=== PATIENT | male | born 1950 | race Caucasian/White ===

== ENCOUNTER → 2017-06-09 16:05 | Outpatient (CLI) | payer BC, SELFPAY ==
--- NOTE | 2017-06-09 12:14 | ESO_PTH ---
PATIENT: ARTEMIO LARA LOC: [facility] U#:[id number] AGE/SX: 74/M ROOM: RE06/09/[address]: Dr. Shun Marin MD : [id number] BED: DIS: SPEC #: [id number] RECD: 06/09/17 15:34 STATUS: KENNY DAVID #: [id number] WILFREDO: 06/09/17 12:[address]: Shun Marin DEPT: SURGICAL PATHOLOGY RECD BY: Artemio Hoff ENTERED: 06/12/17 12:09 SP TYPE: VIJAY JACKSON DR: NANCY Tissues: Esophagus, NOS Procedures: Surgery Specimen Level IV HEADER OPERATION: EGD with biopsies PRE-OP DIAGNOSIS: Dysphagia TISSUE SUBMITTED: Esophageal biopsies, rule out EE MICROSCOPIC DIAGNOSIS Esophageal biopsy: Fragments of squamous epithelium with changes consistent with eosinophilic esophagitis. See comment. HARLEY:edel 06/13/17 COMMENT The specimen shows increased number of eosinophils (> 25 per high power field), consistent with eosinophilic esophagitis. Please make reference to previous specimen ([id number]) esophagus, biopsy with diagnosis of fragments of squamous epithelium with changes consistent with eosinophilic esophagitis. MICROSCOPIC DESCRIPTION Slides are reviewed. GROSS DESCRIPTION Received in fixative is one container labeled with the patient's name and designated esophageal biopsy. The specimen consists of multiple irregular fragments of light burch soft tissue that in aggregate measure 1.4 x 0.3 x 0.1 cm. The specimen is totally submitted in one cassette. / SJ:edel 06/12/17 TC:5 CPT: 76501
== END ==
PROVIDERS: Visit Provider Internal Medicine Gastroenterology
DX: R13.10 Dysphagia, unspecified (principal)
CPT/HCPCS: 88305

== ENCOUNTER → 2017-06-12 06:29 | Outpatient (CLI) | payer BC, SELFPAY ==
[2017-06-12 07:58] LABS: AST(SGOT) 11 U/L (15-37); Alanine Aminotransfer ALT/SGPT 20 U/L (16-61); Albumin, Serum 3.1 g/dL (3.2-5.0); Alkaline Phosphatase 59 U/L (45-117); Bilirubin, Direct 0.23 mg/dL (0.00-0.30); Cholesterol 86 mg/dL (200); High Density Lipoprotein 43 mg/dL; Protein, Total 7.1 g/dL (6.4-8.2); Triglycerides 54 mg/dL; Very Low Density Lipoprotein 11 mg/dL (5-40)
== END ==
PROVIDERS: Family Provider Student in an Organized Health Care Education/Training Program; PCP Student in an Organized Health Care Education/Training Program; Visit Provider Nurse Practitioner Family
DX: E78.5 Hyperlipidemia, unspecified (principal); Z79.899 Other long term (current) drug therapy
CPT/HCPCS: 36415; 80061; 80076

== ENCOUNTER → 2017-12-18 06:01 | Outpatient (CLI) | payer BC, SELFPAY ==
[2017-12-18 09:05] LABS: AST(SGOT) 16 U/L (15-37); Alanine Aminotransfer ALT/SGPT 30 U/L (16-61); Albumin, Serum 3.6 g/dL (3.2-5.0); Alkaline Phosphatase 62 U/L (45-117); Bilirubin, Direct 0.21 mg/dL (0.00-0.30); Cholesterol 107 mg/dL (200); Globulin 3.2 g/dL (2.2-4.2); High Density Lipoprotein 54 mg/dL; Protein, Total 6.8 g/dL (6.4-8.2); Triglycerides 65 mg/dL; Very Low Density Lipoprotein 13 mg/dL (5-40)
== END ==
PROVIDERS: Family Provider Student in an Organized Health Care Education/Training Program; PCP Student in an Organized Health Care Education/Training Program; Referring Provider Nurse Practitioner Family; Visit Provider Nurse Practitioner Family
DX: E78.5 Hyperlipidemia, unspecified (principal)
CPT/HCPCS: 36415; 80061; 80076

== ENCOUNTER 2019-01-22 06:32 | Emergency (ER) | payer BC, SELFPAY ==
[2018-07-09 16:06] VITALS: BMI 28.5
[2019-01-22 06:33] VITALS: BP 134/80; PULSE 67; RESP 16; TEMP 36.4; O2SAT 96; BMI 29.4
--- NOTE | 2019-01-22 06:49 | ED.VIS.GEN ---
History of Present Illness Chief Complaint: Lower Extremity Injury Narrative: Patient is a 68-year-old male who presents with bruising on his right leg. He initially noticed some bruising and swelling on his medial right lower leg near the top of the sock about a week to week and a half ago. He has since noticed that the bruising seems to move down along his foot. He does not have any pain. He is on Eliquis due to history of stroke. No traumatic injury that he recalls. He denies any other bleeding such as rectal bleeding blood in the urine. No chest pain or shortness of breath. Review of systems otherwise negative. Past Medical History - Allergies and Home Meds Allergies/Adverse Reactions: Allergies No Known Allergies Allergy (Verified 01/22/19 06:36) Primary Care Physician: Dima Mario DO [Primary Care Provider] - Past Medical History: - - Stroke Surgical History: no surgical history Smoking Status: Never smoker - Family History Sibling Family History: Family History (Last Reviewed 07/09/18 @ 16:00 by Yoanna Snowden) Brother CVA (cerebral vascular accident) Brother Diabetes Brother Diabetes Family History: Reports: Diabetes, Stroke Paternal Family History: Family History (Last Reviewed 07/09/18 @ 16:00 by Yoanna Snowden) Brother CVA (cerebral vascular accident) Brother Diabetes Brother Diabetes Family History: Reports: Heart Disease Review of Systems All systems negative except as indicated General: Denies: Fever Cardiovascular: Denies: Chest pain Respiratory: Denies: Dyspnea Gastrointestinal: Denies: Abdominal pain Skin: Denies: Rash Neurological: Denies: Headache Hematologic: Reports: Easy bruising, Easy bleeding Allergy: Denies: Uticaria Physical Exam Vital Signs/Narrative: Vital Signs Temp Pulse Resp BP Pulse Ox 01/22/19 06:33 97.6 F L 67 16 134/80 H 96 Inital Vital Signs reviewed: Yes General: Well nourished Head: Normocephalic Eyes: EOMI ENT: Moist mucous membranes Neck: Supple Cardiovascular: Regular rate Respiratory: No distress Extremities: - - Ecchymosis along the medial right lower leg and medial right foot no palpable purpura no petechiae no tenderness no fluctuance or obvious fluid collection no obvious ankle effusion 2+ dorsalis pedis pulse with brisk capillary refill Neurological: Alert Psychological: Normal affect Diagnostic/Tx/Re-eval - Medical Decision Making Patient presents with ecchymosis of his right leg and foot. He describes initial swelling. Suspect he may have had a minor traumatic injury with hematoma and now has some settling of blood products. He has no pain and otherwise has benign exam. He was reassured. He was previously told it was okay to hold his anticoagulation for couple of days for blood donation therefore I did feel it would be safe to hold his anticoagulation for a couple of days in this setting. He was also advised to rest and elevate the leg. He understands to return for new or worsening symptoms and was advised on signs and symptoms to monitor for and was discharged home. ED Disposition - Plan for ED Patient: Disposition: Home or Assisted Living Diagnosis: Ecchymosis Instructions: Contusions (Bruises) Referrals: Dima Mario DO [Primary Care Provider] -
[2019-01-22 06:54] VITALS: RESP 16
== END 2019-01-22 07:07 | disposition home or self-care (01) ==
LOC: ED 07:05
PROVIDERS: Emergency Provider Emergency Medicine; Family Provider Student in an Organized Health Care Education/Training Program; PCP Student in an Organized Health Care Education/Training Program
DX: R58 Hemorrhage, not elsewhere classified (principal); Z79.01 Long term (current) use of anticoagulants; Z82.49 Family history of ischemic heart disease and other diseases of the circulatory system; Z86.73 Personal history of transient ischemic attack (TIA), and cerebral infarction without residual deficits
CPT/HCPCS: 99282

== ENCOUNTER → 2019-02-15 05:56 | Outpatient (CLI) | payer BC, SELFPAY ==
[2019-02-11 14:49] VITALS: BMI 29.8
[2019-02-15 07:50] LABS: AST(SGOT) 20 U/L (15-37); Alanine Aminotransfer ALT/SGPT 33 U/L (16-61); Albumin, Serum 3.6 g/dL (3.2-5.0); Alkaline Phosphatase 60 U/L (45-117); Bilirubin, Direct 0.29 mg/dL (0.00-0.30); Cholesterol 119 mg/dL (200); Globulin 3.2 g/dL (2.2-4.2); High Density Lipoprotein 50 mg/dL; Protein, Total 6.8 g/dL (6.4-8.2); Triglycerides 81 mg/dL; Very Low Density Lipoprotein 16 mg/dL (5-40)
== END ==
PROVIDERS: Family Provider Student in an Organized Health Care Education/Training Program; PCP Student in an Organized Health Care Education/Training Program; Referring Provider Internal Medicine Cardiovascular Disease; Visit Provider Internal Medicine Cardiovascular Disease
DX: E78.5 Hyperlipidemia, unspecified (principal)
CPT/HCPCS: 36415; 80061; 80076

== ENCOUNTER → 2019-09-10 13:45 | Outpatient (CLI) | payer MEDICARE, BC, SELFPAY ==
[2019-08-26 10:51] VITALS: BMI 29.2
--- NOTE | 2019-09-10 13:50 | ECHOD_ITS ---
Reason For Study: PHTN Procedure This was a 2D Doppler, Color Flow transthoracic echocardiogram. Exam performed in department. Left Ventricle Mildly dilated left ventricle. The estimated ejection fraction is 55-60 %. Septal motion consistent with IVCD. No regional wall motion abnormalities noted. Right Ventricle Normal size and thickness. A moderator band is seen in the right ventricle. Normal systolic function. Atria Normal left atrium. Normal right atrium. Normal atrial septum. Mitral Valve The mitral valve is structurally normal. No prolapse or stenosis seen. Trivial mitral valve insufficiency. Tricuspid Valve Normal tricuspid valve. Trivial tricuspid valve insufficiency. Right ventricular systolic pressure estimated to be 23 mmHg. Aortic Valve Trisinus/trileaflet aortic valve. Trivial aortic valve insufficiency. Pulmonic Valve Normal pulmonic valve. Trivial pulmonic valve insufficiency. Great Vessels Mildly dilated aortic root. Normal arch. Normal inferior vena cava. Inferior vena cava collapse with sniff. Pericardium/Pleural No pericardial effusion. MMode/2D Measurements & Calculations LVIDd: 5.0 cm IVSd: 1.1 cm Ao root diam: 4.5 cm LVIDs: 3.6 cm LVPWd: 1.0 cm RVDd: 3.2 cm FS: 28.4 % LAV(MOD-bp): 60.3 ml EDV(MOD-sp4): 134.3 ml SV(MOD-sp4): 75.8 ml LAV(MOD-bp) Indexed: 27.7 ml/m2 ESV(MOD-sp4): 58.5 ml LAV(MOD-sp2): 63.1 ml EF(MOD-sp4): 56.4 % LAV(MOD-sp4): 58.1 ml LA dimension(2D): 3.6 cm LA A4 area: 19.8 cm2 RA A4 area: 16.5 cm2 Time Measurements MV dec time: 0.26 sec Doppler Measurements & Calculations MV E max robin: 39.9 cm/sec Lat Peak E' Robin: 15.5 cm/sec Med Peak E' Robin: 5.1 cm/sec MV A max robin: 54.8 cm/sec E/E' lat: 2.6 E/E' med: 7.8 MV E/A: 0.73 Ao V2 max: 109.5 cm/sec AI max robin: 387.3 cm/sec LV V1 max: 91.1 cm/sec Ao max P.8 mmHg AI max P.0 mmHg LV V1 max P.3 mmHg AI dec slope: 235.6 cm/sec2 AI P1/2t: 481.5 msec PA V2 max: 93.2 cm/sec PI end-d robin: 67.6 cm/sec TR max robin: 208.5 cm/sec TR max P.4 mmHg Interpretation Summary Mildly dilated left ventricle. The estimated ejection fraction is 55-60 %. Trivial mitral valve insufficiency. Trivial tricuspid valve insufficiency. Right ventricular systolic pressure estimated to be 23 mmHg. Trivial aortic valve insufficiency. Mildly dilated aortic root. Compared to echo report dated 10/20/2015, LV function has remained about the same, aortic root is increased from 3.9 to 4.5 cm. RVSP has remained about the same. Ordering Physician: Juan R Phan Referring Physician: ALLIE STEVENSON Performed By: Latoya Gabriel RDCS, RVT
== END ==
PROVIDERS: PCP Student in an Organized Health Care Education/Training Program; Referring Provider Internal Medicine Cardiovascular Disease; Visit Provider Internal Medicine Cardiovascular Disease
DX: I27.20 Pulmonary hypertension, unspecified (principal); I10 Essential (primary) hypertension; I48.4 Atypical atrial flutter; E78.5 Hyperlipidemia, unspecified; I47.1 Supraventricular tachycardia; Z86.73 Personal history of transient ischemic attack (TIA), and cerebral infarction without residual deficits
CPT/HCPCS: 93306

== ENCOUNTER → 2019-09-23 13:21 | Outpatient (CLI) | payer MEDICARE, BC, SELFPAY ==
[2019-08-26 10:51] VITALS: BMI 29.2
--- NOTE | 2019-09-23 13:23 | STE_ITS ---
Reason For Study: Atrial Fibrillation Stress Results Protocol: Ryne Protocol Maximum Predicted HR: 153 bpm Target HR: 130 bpm % Maximum Predicted HR: 94 % DurationHeart Rate Stage (mm:ss) (bpm) BP Comment Baseline 70 124/78No Chest Pain Ryne Protocol Stage I 3:00 102 140/72No Chest Pain Ryne Protocol Stage II 3:00 111 138/72No Chest Pain Ryne Protocol Stage III 3:00 133 164/76No Chest Pain; Mild Dyspnea Ryne Protocol Stage IV 0:30 144 / No Chest Pain; Mild to Mod Dyspnea Recovery 92 132/80 Stress Duration: 9:30 mm:ss Maximum Stress HR: 144 bpm METS: 11 Baseline Echocardiogram Findings The estimated ejection fraction is 65 %. Stress Echo Wall motion Data Resting WM Intermediate WM Stress WM Resting Wall Motion Wall Motion Stress No regional wall motion No regional wall motion abnormalities noted. abnormalities noted. EKG Data The baseline ECG displays normal sinus rhythm. The patient exercised according to the regular Ryne protocol for a total duration of 9:30. The maximum heart rate attained was 153 beats per minute. This was 100% of maximum predicted heart rate. The patient exercised into stage 4 of the Ryne protocol. During stress, there were no ST or T wave changes noted to suggest ischemia. No clinical angina was noted. MMode/2D Measurements & Calculations Ao root diam: 4.4 cm Interpretation Summary The estimated ejection fraction is 65 %. Normal, adequate, treadmill echocardiogram. Negative for ischemia by EKG and echocardiographic criteria. No anginal symptoms noted. Rare PVC and ventricular couplets noted during exercise. Test terminated due to the attainment of target heart rate. Final LVEF is 75%. Patient tolerated procedure well. No complications. Ordering Physician: Juan R Phan Referring Physician: Dima Mario Performed By: Latoya Gabriel, RDCS, RVT
== END ==
PROVIDERS: PCP Student in an Organized Health Care Education/Training Program; Referring Provider Internal Medicine Cardiovascular Disease; Visit Provider Internal Medicine Cardiovascular Disease
DX: I48.91 Unspecified atrial fibrillation (principal); I47.1 Supraventricular tachycardia; I10 Essential (primary) hypertension; I48.4 Atypical atrial flutter; E78.5 Hyperlipidemia, unspecified; Z86.73 Personal history of transient ischemic attack (TIA), and cerebral infarction without residual deficits; R06.00 Dyspnea, unspecified
CPT/HCPCS: 93017; 93350

== ENCOUNTER → 2019-10-01 14:50 | Outpatient (CLI) | payer MEDICARE, BC, SELFPAY ==
[2019-08-26 10:51] VITALS: BMI 29.2
--- NOTE | 2019-10-01 14:51 | CT_ITS ---
We are attempting to reach an attending provider to discuss findings. An addendum with communication details will be sent when the communication is complete. STUDY: CTA CHEST REASON FOR EXAM: Male, 69 years old. AORTIC ROOT DIGITATION SEEN ON ECHO, WENT FROM 3.9 TO 4.5, HTN, STROKE 4-5 YRS AGO RADIATION DOSAGE (If Supplied By Facility): CTDIvol = ( 17.84 ) mGy, DLP = ( 611.58 ) mGycm TECHNIQUE: The examination was performed with the intravenous administration of IV 100mL Isovue-370. Post-processing of the angiographic images was performed, with multiplanar reformation and 3D reconstruction. Individualized dose optimization techniques were used for this CT. COMPARISON: None. FINDINGS: Normal enhancement of the main pulmonary artery and right and left pulmonary arteries. Normal enhancement of the bilateral peripheral pulmonary arteries. There is no demonstrated pulmonary embolism. The main pulmonary artery measures up to 3.3 cm in diameter. There is aneurysmal dilatation of the ascending thoracic aorta measuring up to 4.6 cm in diameter at the level of the aortic root and 4.1 cm in diameter just proximal to the arch. There is suspected nonocclusive thrombus of the right axillary and subclavian veins. There is no demonstrated aortic dissection. Normal heart and pericardium. There are calcified mediastinal and right hilar nodes. Normal visualized trachea and bronchi. The lungs are well expanded. There is a small calcified granuloma of the right upper lobe. Normal pleura. Normal chest wall structures. There are diffuse degenerative changes of the visualized thoracolumbar spine. There is a small hiatal hernia. There is a 2.9 cm low-attenuation focus in the midpole of the right kidney indeterminate for solid versus cystic structure. CT/CTA Chest W/WO Contrast IMPRESSION: Normal CTA chest examination, without a demonstrated pulmonary embolism or arterial dissection. There is mild dilatation of the main pulmonary artery measuring up to 3.3 cm in diameter. This may be associated with pulmonary hypertension. There is suspected nonocclusive thrombus of the right axillary and subclavian veins. Venous DOPPLER study is recommended for further evaluation at this time. There is aneurysmal dilatation of the descending thoracic aorta at the level of the root measuring up to 4.6 cm in diameter and up to 4.1 cm just proximal to the arch. Calcified mediastinal and right hilar nodes. Small hiatal hernia. 2.9 cm low-attenuation focus of the midpole of the right kidney indeterminate for solid versus cystic structure. Ultrasound correlation is recommended. Electronically Signed: Prasanna Maldonado MD at 16:20 EDT , Service support ,
[2019-10-01 15:15] LABS: CREATININE FINGERSTICK 0.9 mg/dL (0.70-1.30)
== END ==
PROVIDERS: PCP Student in an Organized Health Care Education/Training Program; Referring Provider Internal Medicine Cardiovascular Disease; Visit Provider Internal Medicine Cardiovascular Disease
DX: I77.810 Thoracic aortic ectasia (principal); Z86.73 Personal history of transient ischemic attack (TIA), and cerebral infarction without residual deficits
CPT/HCPCS: 71275; Q9967

== ENCOUNTER → 2019-10-02 15:14 | Outpatient (CLI) | payer MEDICARE, BC, SELFPAY ==
[2019-08-26 10:51] VITALS: BMI 29.2
--- NOTE | 2019-10-02 15:16 | VDUE_ITS ---
Reason For Study: Possible DVT by CTA Right Proximal Left Proximal Right jugular vein is spontaneous, widely Left subclavian vein is spontaneous, widely patent, phasic, with no intraluminal patent, phasic, with no intraluminal echogenicity noted. echogenicity noted. Right subclavian vein is spontaneous, widely patent, phasic, with no intraluminal echogenicity noted. Right Lower Arm Right radial vein is compressible. Right ulnar vein is compressible. Right Arm Right axillary vein is spontaneous, patent, phasic, competent, compressible and demonstrates augmentation. Right brachial vein is compressible. Right cephalic vein is compressible. Right basilic vein is compressible. Interpretation Summary No evidence for acute deep venous thrombosis[right] upper extremity with patent and compressible cephalic and basilic veins. Normal flow patterns left subclavian vein Ordering Physician: Juan R Phan Referring Physician: Dima Mario Performed By: Selena Espino RVT, RDCS and Student ?
== END ==
PROVIDERS: PCP Student in an Organized Health Care Education/Training Program; Referring Provider Internal Medicine Cardiovascular Disease; Visit Provider Internal Medicine Cardiovascular Disease
DX: I47.1 Supraventricular tachycardia (principal); I48.4 Atypical atrial flutter; I63.9 Cerebral infarction, unspecified; I82.A11 Acute embolism and thrombosis of right axillary vein; I82.B11 Acute embolism and thrombosis of right subclavian vein
CPT/HCPCS: 93971

== ENCOUNTER 2019-10-19 19:40 | Emergency (ER) | payer MEDICARE, BC, SELFPAY ==
[2019-08-26 10:51] VITALS: BMI 29.2
[2019-10-19] VITALS (8 sets, daily range): BP systolic 126–148; BP diastolic 80–93; PULSE 72–83; RESP 12–18; TEMP 36.6–36.8; O2SAT 91–96; BMI 29.9
--- NOTE | 2019-10-19 20:08 | ED.VISSUMM ---
- ER Visit Summary Date of Service: 10/19/19 Chief Complaint: Cough and fever History of Present Illness: The patient is a 69 M history of thoracic aneurysm, CVA and hypertension. Patient has had coworkers have been recently COVID positive. He developed a cough and fever today with mild shortness of breath. He denies chest pain. States nonproductive cough. He denies any nausea, vomiting or diarrhea. Physical Examination: Older male accompanied by his vital signs stable afebrile. Pulse ox 93% on room air no hypoxia. HEENT exam unremarkable. Moist wheeze members. Neck nontender. No lymphadenopathy. No JVD. Lungs clear to auscultation bilaterally. No rales, rhonchi or wheezing. Equal symmetrical. No distress. Heart regular rhythm rate about 80 no murmur. Abdomen soft nontender normal bowel sounds no peritoneal signs. Patient moving all 4 extremities. Calves nontender without edema or cords. Neurologically is awake alert with no focal motor deficits. Back nontender. Skin unremarkable. Test Results: Chest x-ray AP and lateral view shows no acute abnormality. No infiltrate. No obvious COVID. CBC white count of 4. Hemoglobin 14. No bands. Chemistries unremarkable normal creatinine and gap. Send out COVID test pending. Emergency Department Course and Treatment: Patient with cough and fever prior to arrival. COVID testing. Also chest x-ray and labs. Repeat exam patient is doing well at 21:14 PM. I am concerned that he may be COVID positive. He will need to self quarantine at home until the test results return. To walk the patient up and down the hallway off of oxygen and his pulse ox saturation remained at 93%. He did well and is comfortable being discharged home. Treatment Plan: Quarantine at home. Return if worse. Follow-up with his primary care physician. Disposition: Discharge Impression: Viral URI Suspected COVID-19 with send out test pending This note was generated with [employer] dictation software. It may contain incorrect words, spelling, and punctuation that were not noted in review of the chart prior to signing ED Disposition - Plan for ED Patient: Disposition: Home or Assisted Living Instructions: ED URI Viral Referrals: Dima Mario, [Primary Care Provider] - 3-5 Days if not improving Additional Instructions: Plenty of fluids and rest. Tylenol for fever. We did send a coronavirus or COVID-19 test that will go to [place] and the results are returned in the next 72 hours. You should quarantine yourself at home until the coronavirus test results return. Obviously if you are COVID positive you will need to quarantine for a minimum 10 days. Return to the emergency department if you are feeling a lot worse this specially if you have shortness of breath.
[2019-10-19 20:31] LABS: Absolute Lymphocyte Count 1.02 X10^3/uL (0.83-4.51); Absolute Neutrophil Count 2.2 X10^3/uL (2.0-7.7); Basophil# 0.03 X10^3/uL; Basophil% 0.7 % (0-1); Eosinophil# 0.25 X10^3/uL; Eosinophils% 5.5 % (0-5); Hematocrit 43.7 % (40-54); Hemoglobin 14.7 g/dL (13.0-16.5); Lymphocyte # 1.02 X10^3/ul (4.0); Lymphocyte % 22.4 % (19-41); Mean Corp Hgb Conc 33.6 g/dL (32-36); Mean Corpuscular Hgb 33.1 pg (27.0-32.0); Mean Corpuscular Volume 98.4 fL (80-94); Mean Platelet Vol. 9.4 fl (6.2-12.0); Monocyte# 1.08 X10^3/uL; Monocyte% 23.7 % (0-10); NRBC Flagged by Analyzer 0 % (0-5); Neutrophil # 2.17 X10^3/uL (2.7-7.7); Neutrophil % 47.5 % (47-70); Platelet Count 197 K/mm3 (150-450); RBC Distribution Width CV 13.2 % (11.6-14.6); RBC Distribution Width SD 47.8 fl (35.1-43.9); Red Blood Count 4.44 M/mm3 (4.6-6.2); White Blood Count 4.6 K/mm3 (4.4-11.0)
[2019-10-19 20:45] LABS: Anion Gap 6 (5-15); BUN 12 mg/dL (7-18); BUN/Creat Ratio 11.3 RATIO (10-20); Chloride 109 mmol/L (98-107); Creatinine, Serum 1.06 mg/dL (0.70-1.30); EST Glomerular Filtration Rate 74 mL/min (>60); Est Glom Filt Rate - Afr Amer 90 mL/min (>60); Estimated Creatinine Clearance 74.22 ml/min; Glucose 95 mg/dL (74-106); Potassium 3.9 mmol/L (3.5-5.1); Sodium Level 140 mmol/L (136-145)
--- NOTE | 2019-10-19 20:45 | RAD_ITS ---
STUDY: X-RAY CHEST REASON FOR EXAM: Male, 69 years old. sob, fatigue, fever at one point today of 101 TECHNIQUE: Single AP portable view of the chest. COMPARISON: October 19, 2015 FINDINGS: There are interstitial fibrotic changes of the lungs. No visualized consolidation or infiltrate. There is no demonstrated pleural abnormality. Normal size heart. Stable visualized mediastinal and osseous structures. RAD/Chest 1 View (Portable) IMPRESSION: No visualized acute process Electronically Signed: Ridge Herrera MD at 21:43 EDT , Service support ,
--- NOTE | 2019-10-19 21:15 | DCINST.ED_ITS ---
ED Disposition - Plan for ED Patient: Disposition: Home or Assisted Living Instructions: ED URI Viral Referrals: Dima Mario DO [Primary Care Provider] - 3-5 Days if not improving Additional Instructions: Plenty of fluids and rest. Tylenol for fever. We did send a coronavirus or COVID-19 test that will go to [place] and the results are returned in the next 72 hours. You should quarantine yourself at home until the coronavirus test results return. Obviously if you are COVID positive you will need to quarantine for a minimum 10 days. Return to the emergency department if you are feeling a lot worse this specially if you have shortness of breath.
== END 2019-10-19 21:33 | disposition home or self-care (01) ==
PROVIDERS: Emergency Provider Emergency Medicine; PCP Student in an Organized Health Care Education/Training Program
DX: J06.9 Acute upper respiratory infection, unspecified (principal); Z20.828 Contact with and (suspected) exposure to other viral communicable diseases; I10 Essential (primary) hypertension; Z86.73 Personal history of transient ischemic attack (TIA), and cerebral infarction without residual deficits
CPT/HCPCS: 71045; 80048; 85025; 87635; 99284; A4216; U0003

== ENCOUNTER → 2020-02-29 07:22 | Outpatient (CLI) | payer MEDICARE, BC, SELFPAY ==
[2020-02-26 14:03] VITALS: BMI 29.8
[2020-02-29 08:12] LABS: Absolute Lymphocyte Count 1.11 X10^3/uL (0.83-4.51); Absolute Neutrophil Count 2.5 X10^3/uL (2.0-7.7); Basophil# 0.05 X10^3/uL; Eosinophils% 15.8 % (0-5); Hematocrit 48.8 % (40-54); Hemoglobin 16.4 g/dL (13.0-16.5); Lymphocyte # 1.11 X10^3/ul (4.0); Mean Corp Hgb Conc 33.6 g/dL (32-36); Mean Corpuscular Volume 98.2 fL (80-94); Mean Platelet Vol. 9.4 fl (6.2-12.0); Monocyte# 0.59 X10^3/uL; Monocyte% 11.7 % (0-10); NRBC Flagged by Analyzer 0 % (0-5); Neutrophil # 2.49 X10^3/uL (2.7-7.7); Neutrophil % 49.3 % (47-70); Platelet Count 219 K/mm3 (150-450); RBC Distribution Width CV 12.6 % (11.6-14.6); RBC Distribution Width SD 45.3 fl (35.1-43.9); Red Blood Count 4.97 M/mm3 (4.6-6.2); White Blood Count 5.1 K/mm3 (4.4-11.0)
[2020-02-29 08:31] LABS: AST(SGOT) 13 U/L (15-37); Alanine Aminotransfer ALT/SGPT 28 U/L (16-61); Albumin, Serum 3.6 g/dL (3.2-5.0); Alkaline Phosphatase 68 U/L (45-117); Bilirubin, Direct 0.19 mg/dL (0.00-0.30); Cholesterol 122 mg/dL (200); Globulin 3.3 g/dL (2.2-4.2); High Density Lipoprotein 52 mg/dL; Protein, Total 6.9 g/dL (6.4-8.2); Triglycerides 76 mg/dL; Very Low Density Lipoprotein 15 mg/dL (5-40)
== END ==
PROVIDERS: PCP Student in an Organized Health Care Education/Training Program; Referring Provider Physician Assistant Medical; Visit Provider Physician Assistant Medical
DX: I47.1 Supraventricular tachycardia (principal); I77.810 Thoracic aortic ectasia; I10 Essential (primary) hypertension; E78.00 Pure hypercholesterolemia, unspecified
CPT/HCPCS: 36415; 80061; 80076; 85025

== ENCOUNTER 2020-10-11 18:00 | Emergency (ER) | payer MEDICARE, BC, SELFPAY ==
[2020-10-11 18:01] VITALS: BP 140/86; PULSE 76; RESP 16; TEMP 36.9; O2SAT 95; BMI 29.2
--- NOTE | 2020-10-11 18:39 | EKG12_ITS ---
Test Reason : CHEST Blood Pressure : / mmHG Vent. Rate : 069 BPM Atrial Rate : 069 BPM P-R Int : 238 ms QRS Dur : 110 ms QT Int : 418 ms P-R-T Axes : 074 -27 022 degrees QTc Int : 447 ms Sinus rhythm with sinus arrhythmia with 1st degree A-V block Low voltage QRS Poor R wave progression Borderline ECG Confirmed by ANGELES SULLIVAN, ALFIE ([id number]), editor news WANDA NOGUERA ([id number]) on 10/13/2020 8:54:34 AM Referred By: TOD Confirmed By:ALFIE REYNOSO MD
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
[2020-10-11 19:16] LABS: Absolute Lymphocyte Count 1.58 X10^3/uL (0.83-4.51); Absolute Neutrophil Count 3.5 X10^3/uL (2.0-7.7); Basophil# 0.04 X10^3/uL; Basophil% 0.6 % (0-1); Eosinophil# 0.78 X10^3/uL; Eosinophils% 11.7 % (0-5); Hematocrit 46.9 % (40-54); Hemoglobin 15.8 g/dL (13.0-16.5); Lymphocyte # 1.58 X10^3/ul (0.83-4.51); Lymphocyte % 23.7 % (19-41); Mean Corp Hgb Conc 33.7 g/dL (32-36); Mean Corpuscular Hgb 32.6 pg (27.0-32.0); Mean Corpuscular Volume 96.7 fL (80-94); Mean Platelet Vol. 9.3 fl (6.2-12.0); Monocyte# 0.75 X10^3/uL; Monocyte% 11.2 % (0-10); NRBC Flagged by Analyzer 0 % (0-5); Neutrophil # 3.52 X10^3/uL (2.7-7.7); Neutrophil % 52.7 % (47-70); Platelet Count 187 K/mm3 (150-450); RBC Distribution Width CV 12.8 % (11.6-14.6); RBC Distribution Width SD 45.7 fl (35.1-43.9); Red Blood Count 4.85 M/mm3 (4.6-6.2); White Blood Count 6.7 K/mm3 (4.4-11.0)
--- NOTE | 2020-10-11 19:20 | RAD_ITS ---
STUDY: X-RAY - UNILATERAL RIBS ( RIGHT ) WITH CHEST REASON FOR EXAM: Male, 70 years old. pain TECHNIQUE - RIBS: 4 view(s) of the ribs. TECHNIQUE - CHEST: Single AP portable view of the chest. COMPARISON: 10/19/2019. FINDINGS - RIBS: Normal visualized ribs without a demonstrated fracture. FINDINGS - CHEST: There is hyperinflation of the lungs consistent with chronic obstructive lung disease (COPD). There is no demonstrated pleural abnormality. Normal size heart. Normal mediastinum and ezequiel. There is prominence of the pulmonary hilar arteries without peripheral pulmonary vascular congestion, suggesting pulmonary hypertension. There is atherosclerotic tortuosity of the aortic arch and descending thoracic aorta. Normal visualized thoracic spine. Normal visualized ribs, clavicles, and shoulders. There is no demonstrated abnormality of the visualized soft tissue structures of the upper abdomen. RAD/Ribs Uni Min 3V w/PA Chest IMPRESSION: RIBS: Normal x-ray examination of the ribs. CHEST: There are findings consistent with COPD. There is no evidence of acute chest disease. Electronically Signed: David Galicia MD at 19:48 EDT , Service support ,
[2020-10-11 19:35] LABS: Anion Gap 6 (5-15); BUN 9 mg/dL (7-18); BUN/Creat Ratio 11.2 RATIO (10-20); Calcium,Total 8.4 mg/dL (8.5-10.1); Chloride 110 mmol/L (98-107); EST Glomerular Filtration Rate 102 mL/min (>60); Est Glom Filt Rate - Afr Amer 123 mL/min (>60); Glucose 118 mg/dL (74-106); Potassium 3.8 mmol/L (3.5-5.1); Sodium Level 143 mmol/L (136-145); Troponin-I HS 8 pg/mL (3.0-78.0)
[2020-10-11 20:12] VITALS: BP 135/89; PULSE 64; RESP 17; O2SAT 94
[2020-10-11] MEDS: Lidocaine 5% Patch 1 PATCH TOPICAL (20:39)
== END 2020-10-11 21:49 | disposition home or self-care (01) ==
PROVIDERS: Emergency Provider Student in an Organized Health Care Education/Training Program; PCP Student in an Organized Health Care Education/Training Program
DX: S29.011A Strain of muscle and tendon of front wall of thorax, initial encounter (principal); X50.0XXA Overexertion from strenuous movement or load, initial encounter; Y93.9 Activity, unspecified; Y92.89 Other specified places as the place of occurrence of the external cause; Y99.9 Unspecified external cause status; Z86.79 Personal history of other diseases of the circulatory system; E78.5 Hyperlipidemia, unspecified; G47.33 Obstructive sleep apnea (adult) (pediatric); I10 Essential (primary) hypertension; Z79.01 Long term (current) use of anticoagulants; Z79.82 Long term (current) use of aspirin; Z86.73 Personal history of transient ischemic attack (TIA), and cerebral infarction without residual deficits
CPT/HCPCS: 71101; 80048; 84484; 85025; 93005; 99284; A4216

== ENCOUNTER → 2021-09-30 | Outpatient (CLI) | payer MEDICARE, BC, SELFPAY ==
[2021-09-30 15:12] LABS: Absolute Lymphocyte Count 1.88 X10^3/uL (0.83-4.51); Absolute Neutrophil Count 5.6 X10^3/uL (2.0-7.7); Basophil# 0.03 X10^3/uL; Basophil% 0.3 % (0-1); Eosinophil# 0.41 X10^3/uL; Eosinophils% 4.6 % (0-5); Hematocrit 46.6 % (40-54); Hemoglobin 15.9 g/dL (13.0-16.5); Lymphocyte # 1.88 X10^3/ul (0.83-4.51); Lymphocyte % 21.3 % (19-41); Mean Corp Hgb Conc 34.1 g/dL (32-36); Mean Corpuscular Hgb 32.4 pg (27.0-32.0); Mean Corpuscular Volume 95.1 fL (80-94); Mean Platelet Vol. 9.3 fl (6.2-12.0); Monocyte# 0.92 X10^3/uL; Monocyte% 10.4 % (0-10); NRBC Flagged by Analyzer 0 % (0-5); Neutrophil # 5.56 X10^3/uL (2.7-7.7); Neutrophil % 62.9 % (47-70); Platelet Count 229 K/mm3 (150-450); RBC Distribution Width CV 12.7 % (11.6-14.6); RBC Distribution Width SD 44.5 fl (35.1-43.9); White Blood Count 8.8 K/mm3 (4.4-11.0)
[2021-09-30 15:32] LABS: BNP,B-Type NATRIURETIC PEPTIDE 33.1 pg/mL (0-100)
[2021-09-30 15:47] LABS: Anion Gap 3 (5-15); BUN 11 mg/dL (7-18); BUN/Creat Ratio 12.4 RATIO (10-20); Calcium,Total 8.7 mg/dL (8.5-10.1); Chloride 106 mmol/L (98-107); Creatinine, Serum 0.89 mg/dL (0.70-1.30); EST Glomerular Filtration Rate 91 mL/min (>60); Est Glom Filt Rate - Afr Amer 110 mL/min (>60); Glucose 97 mg/dL (74-106); Potassium 3.9 mmol/L (3.5-5.1); Sodium Level 140 mmol/L (136-145); Thyroid Stim Hormone (TSH) 1.23 uIU/mL (0.358-3.74)
== END | disposition home or self-care (01) ==
LOC: LAB 14:49
PROVIDERS: PCP Student in an Organized Health Care Education/Training Program; Referring Provider Nurse Practitioner Gerontology; Visit Provider Nurse Practitioner Gerontology
DX: R53.83 Other fatigue (principal); R06.09 Other forms of dyspnea
CPT/HCPCS: 36415; 80048; 83880; 84439; 84443; 85025

== ENCOUNTER 2021-12-15 09:24 | Emergency (ER) | payer MEDICARE, BC, SELFPAY ==
[2021-12-15 09:25] VITALS: BP 127/99; PULSE 98; RESP 18; TEMP 36.6; O2SAT 96; BMI 27.7
--- NOTE | 2021-12-15 10:08 | ED.VIS.LOWEX ---
HPI History of Present Illness Chief Complaint: Lower Extremity Injury Detail of Chief Complaint: Right knee pain Informant: patient Narrative Narrative: Patient presents with right knee pain. Patient states that initially he thinks he may have injured it in early November when he was riding on his 0 turn mower with his 9-year-old on his lap and he had some bumps. Patient states that he had some soreness to the knee but felt like things were getting better. Yesterday while at work he caught his work boots on the floor in his right knee twisted and he developed sudden onset of pain. Patient now having a hard time bearing weight secondary to pain. Patient is on Eliquis due to history of prior stroke and history of A. fib. [facility] Medical History Acute deep vein thrombosis (DVT) of axillary vein of right upper extremity Atypical atrial flutter Cardioembolic stroke (10/2015) COVID-19 virus detected (10/2019) Esophagitis Essential hypertension GERD (gastroesophageal reflux disease) History of CVA (cerebrovascular accident) (10/2015) HLD (hyperlipidemia) Localized edema ALCIRA (obstructive sleep apnea) Right subclavian vein thrombosis SVT (supraventricular tachycardia) Thoracic aortic aneurysm (TAA) Ureteral stone Home Medications apixaban 5 mg tablet 5 mg PO BID #180 tabs 12/23/20 [Rx Last Taken Unknown] atorvastatin 40 mg tablet 40 mg PO QHS #90 tabs 12/23/20 [Rx Last Taken Unknown] diltiazem HCl 360 mg capsule,extended release 24 hr 360 mg PO QDAY #90 caps 12/23/20 [Rx Last Taken Unknown] pantoprazole 40 mg tablet,delayed release 40 mg PO DAILY 12/23/20 [History Last Taken Unknown] hydrocodone-acetaminophen 5-325mg 5mg-325mg 1 tab PO Q4H PRN PRN Pain 2 days #10 TABLETS 12/15/21 [Rx Last Taken Unknown] Allergy/AdvReac Type Severity Reaction Status Date / Time No Known Allergies Allergy Verified 12/15/21 09:28 Family History Brother CVA (cerebral vascular accident) Brother Diabetes Brother Diabetes Surgical History History of appendectomy hx ureteral excision hx ureteral reimplantation Social History Smoking Status: Never smoker alcohol intake: current alcohol intake frequency: a few times a week Alcohol type: beer substance use type: does not use caffeine: Yes Type: coffee Number of servings: 1 ROS ROS ED Review of Systems ROS Unobtainable: other Constitutional Constitutional ED: Reports lethargy; Denies chills, fever(s), sweats or weight loss Eyes Eyes: Denies blurry vision, change in vision or diplopia ENT ENT ED: Denies rhinorrhea or sore throat Cardiovascular Cardiovascular: Denies chest pain, orthopnea or racing heartbeat Respiratory/Chest Respiratory/Chest: Denies cough, dyspnea, dyspnea on exertion, orthopnea or sputum Gastrointestinal Gastrointestinal: Denies abdominal pain, diarrhea, nausea or vomiting Genitourinary Genitourinary ED: Denies dysuria, hematuria or urinary frequency Musculoskeletal Musculoskeletal: Reports other Details: Right knee pain ; Denies arthralgias, back pain, myalgias or neck pain Integumentary Denies abscess, Abrasions or rash Neurologic Neurologic: Denies headache(s) or weakness Psychiatric Psychiatric: Denies anxiety, depression or suicidal thoughts Endocrine Endocrinology: Denies polydipsia, polyphagia or polyuria Hematologic/Lymphatic Hematologic/Lymphatic: Denies easy bleeding, easy bruising or lymphadenopathy Allergic/Immunologic Allergic/Immunologic ED: Denies mouth swelling, tongue swelling or urticaria EXAM Physical Exam Const Vital Signs: 12/15/21 09:25 Temperature 97.9 F Temperature Source Temporal Pulse Rate 98 Respiratory Rate 18 Blood Pressure 127/99 H Blood Pressure Mean 108 Pulse Ox 96 Oxygen Delivery Method Room Air Positive well nourished and well developed General Appearance ED: well developed and NAD HEENT Reports TM's clear and moist mucous membranes normocephalic and atraumatic; Negative for trauma or tenderness Tympanic Membrane ED: Yes TM's clear Eyes PERRL and EOMs intact bilaterally General Eye ED: Negative for pale conjunctiva or scleral icterus Neck no lymphadenopathy, supple and no JVD General: Negative for tenderness Chest Wall inspection of chest normal and palpation of chest normal Chest: Negative for tenderness Resp normal respiratory effort and clear to auscultation bilaterally Effort and Inspection: Negative for respiratory distress or pain with movement Auscultation: Negative for rhonchi, wheezes or diminished lung sounds Cardio regular rate, regular rhythm, S1 normal heart sound, S2 normal heart sound and no murmurs Peripheral Pulses: pulses 2+ throughout GI normal to inspection, nondistended, normoactive bowel sounds, soft to palpation, non-tender, non-distended and no masses Back/Spine no CVA tenderness and no thoracic nor lumbar tenderness Extremity Extremity Narrative: Right knee-patient does have some mild suprapatellar effusion. Patient has pain with flexion extension of the knee. There is no ecchymosis or bruising noted. Ligamentous exam somewhat limited due to pain but appears ligamentously stable with normal anterior and posterior drawer test and no laxity noted with varus and valgus stressing of the joint. He is neurovascular intact distally. General Extremety ED: Negative for edema General Extremity: Negative for edema Neuro oriented x3, CN's II-XII intact bilaterally, no sensory deficits noted and gait normal Sensorium / Orientation: awake, alert, oriented to person, oriented to place and oriented to time Motor Exam: strength 5/5 throughout and strength abnormal Psych mental status grossly normal Skin no rashes or lesions noted and no wounds MDM MDM MDM Narrative Medical decision making narrative: Suspect patient has a sprain of his right knee although I cannot rule out internal derangement such as injury to the meniscus or ligaments. Patient will be given a knee immobilizer and crutches. He will be given a prescription for a few [place] for pain. He is given referral to orthopedics for follow-up. Radiography Diagnostic Testing: Clinical Impression(s) from Imaging Studies Knee X-Ray 12/15/21 10:10 IMPRESSION: Small joint effusion. Electronically Signed: Marino Oconnor MD at 10:35 EST , 4 view x-rays of right knee obtained interpreted by myself as no acute fractures. Radiology felt there was a small joint effusion. Discharge Plan Triage Chief Complaint: Lower Extremity Injury ED Provider: Fariba Gibson Dx/Rx/DC Orders Clinical Impression: Sprain of knee Instructions: ED Knee Sprain Prescriptions: New hydrocodone-acetaminophen [hydrocodone-acetaminophen] 1 TABLET tablet 1 tab PO Q4H PRN PRN (Reason: Pain) 2 Days Qty: 10 0RF No Action pantoprazole 40 mg tablet,delayed release (DR/EC) 40 mg PO DAILY apixaban 5 mg tablet 5 mg PO BID Qty: 180 3RF Label Comments: BLOOD THINNER atorvastatin 40 mg tablet 40 mg PO QHS Qty: 90 3RF Label Comments: CHOLESTEROL diltiazem HCl 360 mg capsule,extended release 24hr 360 mg PO QDAY Qty: 90 3RF Primary Care Provider: Dima Mario Referrals: Dima Mario DO [Primary Care Provider] - Prince Laboy MD [Med Staff - Active Staff] - 3-5 Days Disposition Disposition: Home, Self Care
--- NOTE | 2021-12-15 10:10 | RAD_ITS ---
STUDY: X-RAY - RIGHT KNEE REASON FOR EXAM: Male, 71 years old. Knee pain following recent injury. TECHNIQUE: 4 view(s) of the knee. COMPARISON: None. FINDINGS: Normal visualized distal femur. Normal visualized proximal tibia and fibula. Normal proximal tibiofibular articulation. Normal medial femorotibial compartment. Normal lateral femorotibial compartment. Normal patellofemoral articulation. Small joint effusion. RAD/Knee 4 or More Views IMPRESSION: Small joint effusion. Electronically Signed: Marino Oconnor MD at 10:35 EST ,
== END 2021-12-15 12:02 | disposition home or self-care (01) ==
PROVIDERS: Emergency Provider Emergency Medicine; PCP Student in an Organized Health Care Education/Training Program; Visit Provider Emergency Medicine
DX: S83.90XA Sprain of unspecified site of unspecified knee, initial encounter (principal); I10 Essential (primary) hypertension; E78.5 Hyperlipidemia, unspecified; Z86.16 Personal history of COVID-19; K21.9 Gastro-esophageal reflux disease without esophagitis; Z86.73 Personal history of transient ischemic attack (TIA), and cerebral infarction without residual deficits; G47.33 Obstructive sleep apnea (adult) (pediatric); Z86.718 Personal history of other venous thrombosis and embolism
CPT/HCPCS: 73564; 99284

== ENCOUNTER → 2021-12-23 | Outpatient (CLI) | payer MEDICARE, BC, SELFPAY ==
--- NOTE | 2021-12-23 14:32 | CT_ITS ---
STUDY: CTA CHEST REASON FOR EXAM: Male, 71 years old. TAA. Follow-up examination. RADIATION DOSAGE (If Supplied By Facility): CTDIvol = ( 15.42 ) mGy, DLP = ( 620.35 ) mGycm TECHNIQUE: The examination was performed with the intravenous administration of IV 100mL Isovue-370. Post-processing of the angiographic images was performed, with multiplanar reformation and 3D reconstruction. Individualized dose optimization techniques were used for this CT. COMPARISON: Comparison is made with prior study dated 10/01/2019. FINDINGS: Normal enhancement of the main pulmonary artery and right and left pulmonary arteries. Normal enhancement of the bilateral peripheral pulmonary arteries. There is no demonstrated pulmonary embolism. There is aneurysmal dilatation of the ascending aorta. The transverse diameter of the ascending aorta measures 45.1 mm''s. There is no demonstrated aortic dissection. There are calcifications of the coronary arteries. Calcified precarinal and right hilar lymph nodes. Normal visualized trachea and bronchi. The lungs are well expanded. Normal pulmonary parenchyma. Normal pleura. Normal chest wall structures. There are degenerative changes of thoracic spine. Moderate sized hiatal hernia. CT/CTA Chest W/WO Contrast IMPRESSION: Stable examination. Electronically Signed: Marino Oconnor MD at 15:32 EST ,
[2021-12-23 15:10] LABS: CREATININE FINGERSTICK < 0.9 mg/dL (0.70-1.30); EGFR FINGERSTICK > 60.0000 mL/min (>60)
== END | disposition home or self-care (01) ==
LOC: CT 14:31
PROVIDERS: PCP Student in an Organized Health Care Education/Training Program; Referring Provider Internal Medicine Cardiovascular Disease; Visit Provider Internal Medicine Cardiovascular Disease
DX: I71.20 Thoracic aortic aneurysm, without rupture, unspecified (principal)
CPT/HCPCS: 71275; Q9967

== ENCOUNTER 2022-03-04 17:53 | Emergency (ER) | payer MEDICARE, BC, SELFPAY ==
[2022-03-04 17:55] VITALS: BP 120/80; PULSE 61; RESP 15; TEMP 36.1; O2SAT 98; BMI 30.2
[2022-03-04 17:57] VITALS: PULSE 54
--- NOTE | 2022-03-04 18:00 | ED.RN ---
denies n/v, feels less dizzy when eyes are closed.
[2022-03-04 18:26] VITALS: O2SAT 81
[2022-03-04 18:28] VITALS: O2SAT 98
--- NOTE | 2022-03-04 18:40 | EKG12_ITS ---
Test Reason : DIZZY Blood Pressure : / mmHG Vent. Rate : 049 BPM Atrial Rate : 049 BPM P-R Int : 240 ms QRS Dur : 104 ms QT Int : 494 ms P-R-T Axes : 077 -28 022 degrees QTc Int : 446 ms Sinus bradycardia with marked sinus arrhythmia with 1st degree A-V block Otherwise normal ECG Confirmed by ANIBAL SULLIVAN, WAYNE ([id number]), state editor WANDA NOGUERA ([id number]) on 03/07/2022 9:23:39 AM Referred By: SAADIA/RUBEN Confirmed By:WAYNE BARNETT MD
--- NOTE | 2022-03-04 18:40 | EDS_ITS ---
HPI History of Present Illness Chief Complaint: Syncope Informant: patient and spouse/S.O. Narrative Narrative: Brought in by EMS from [facility] for near syncopal episode. Patient drove his to [facility] states he was scraping of snow and the car is working hard with some effort he went into catch up with his spouse is feeling fine initially upon catching up. He felt slight dizziness. He states slight shortness of breath. There is no chest pains. No abdominal pain. No syncopal episodes. History of chronic A. fib on Eliquis and on diltiazem. He had a small stroke 4 years ago slight residual deficits with lip drooping on the right. There is no weakness. He is on a statin. He has been compliant with his medications. Denies recent vomiting or diarrhea. Denies cough. Denies urinary symptoms. Denies any bloody stools with being on Eliquis. He does deal with a thoracic aneurysm being followed states last evaluated getting smaller there is no chest or back pain. [facility] Medical History Acute deep vein thrombosis (DVT) of axillary vein of right upper extremity Atypical atrial flutter Cardioembolic stroke (10/2015) COVID-19 virus detected (10/2019) Effusion, right knee Esophagitis Essential hypertension GERD (gastroesophageal reflux disease) History of CVA (cerebrovascular accident) (10/2015) HLD (hyperlipidemia) Localized edema ALCIRA (obstructive sleep apnea) Osteoarthritis of right knee Right subclavian vein thrombosis SVT (supraventricular tachycardia) Thoracic aortic aneurysm (TAA) Ureteral stone Home Medications pantoprazole 40 mg tablet,delayed release 40 mg PO DAILY 12/23/20 [History Last Taken Unknown] atorvastatin 40 mg tablet 40 mg PO QHS #90 tabs 01/25/22 [Rx Last Taken Unknown] apixaban 5 mg tablet 5 mg PO BID #180 tabs 02/18/22 [Rx Last Taken Unknown] diltiazem HCl 360 mg capsule,extended release 24 hr 360 mg PO QDAY #90 caps 02/18/22 [Rx Last Taken Unknown] metoclopramide HCl 5 mg tablet (Reglan) 5 mg PO TID PRN PRN dizziness or vertigo #10 tabs 03/04/22 [Rx Last Taken Unknown] Allergy/AdvReac Type Severity Reaction Status Date / Time No Known Allergies Allergy Verified 03/04/22 17:54 Family History Brother CVA (cerebral vascular accident) Brother Diabetes Brother Diabetes Surgical History History of appendectomy hx ureteral excision hx ureteral reimplantation Social History Smoking Status: Never smoker alcohol intake: current alcohol intake frequency: a few times a week Alcohol type: beer substance use type: does not use caffeine: Yes Type: coffee Number of servings: 1 ROS ROS ED Constitutional Constitutional ED: Denies chills, fever(s) or sweats Eyes Eyes: Denies change in vision ENT ENT ED: Denies dysphagia or sore throat Cardiovascular Cardiovascular: Denies chest pain, leg edema, palpitations or racing heartbeat Respiratory/Chest Respiratory/Chest: Denies cough, dyspnea or dyspnea on exertion Gastrointestinal Gastrointestinal: Denies abdominal pain, diarrhea, nausea or vomiting Genitourinary Genitourinary ED: Denies dysuria, hematuria or urinary frequency Musculoskeletal Musculoskeletal: Denies back pain, extremity pain or neck pain Integumentary Denies rash or wounds Neurologic Neurologic: Denies headache(s), paresthesias or weakness EXAM Physical Exam Const Vital Signs: 03/04/22 17:55 03/04/22 17:57 03/04/22 17:59 Temperature 96.9 F L Temperature Source Temporal Pulse Rate 61 54 L Respiratory Rate 15 Respiratory Effort Normal Non-Labored Blood Pressure 120/80 Blood Pressure Mean 93 Pulse Ox 98 Oxygen Delivery Method Room Air Oxygen Flow Rate (L/min) 03/04/22 18:26 03/04/22 18:28 03/04/22 20:00 Temperature Temperature Source Pulse Rate 68 Respiratory Rate 14 Respiratory Effort Blood Pressure 132/76 H Blood Pressure Mean 94 Pulse Ox 81 98 92 Oxygen Delivery Method Room Air Nasal Cannula Nasal Cannula Oxygen Flow Rate (L/min) 2 03/04/22 21:06 Temperature Temperature Source Pulse Rate 68 Respiratory Rate 16 Respiratory Effort Blood Pressure 133/89 H Blood Pressure Mean Pulse Ox 93 Oxygen Delivery Method Oxygen Flow Rate (L/min) Positive well nourished and well developed Constitutional Narrative: 2 L nasal cannula General Appearance ED: well developed and NAD HEENT Reports moist mucous membranes normocephalic and atraumatic Eyes PERRL, EOMs intact bilaterally and conjunctivae normal General Eye ED: Yes normal appearance of both eyes Neck no lymphadenopathy and supple General: Negative for tenderness Chest Wall Chest: Negative for tenderness Resp normal respiratory effort and normal air movement Effort and Inspection: symmetric chest movement; Negative for respiratory distress Cardio no murmurs Rate: bradycardia Rhythm: abnormal rhythm Peripheral Pulses: pulses 2+ throughout GI normal to inspection, nondistended, normoactive bowel sounds and non-tender Palpation: Negative for guarding or rebound tenderness present Back/Spine no CVA tenderness and no thoracic nor lumbar tenderness Extremity normal to inspection General Extremety ED: Negative for edema or tenderness General Extremity: Negative for edema Neuro oriented x3, CN's II-XII intact bilaterally and no sensory deficits noted Sensorium / Orientation: awake and alert Skin no rashes or lesions noted and no wounds MDM MDM MDM Narrative Medical decision making narrative: Patient vital stable. Presenting questionable near syncope however had some dizziness sensations. EKG was sinus rhythm with bradycardia heart rate was 49 EKG multiple rechecks was in the 50s and 60s he is on diltiazem. Blood pressure stable. EKG with no signs of heart block. Labs stable hemoglobin and creatinine normal. Differentials near syncope, no anemia or hypotension. Reevaluation still dizziness with turning he had horizontal nystagmus to the right. No focal neurological deficits. He was treated with IV Reglan. Improving symptoms. Likely vertiginous symptoms currently improved. He is able to ambulate with no return of symptoms. Or prescription of Reglan written help with symptom control. Was noted initially had a pulse ox of 81% however likely outlier he had no dyspnea or cough. He is on Eliquis therefore lower concerns for PE. He has no cough or concerns for pneumonia. He was ambulated maintained at 94% with no dyspnea. He is discharged with outpatient follow-up. Return precautions discussed. All questions were answered. Lab Data Attestation: I reviewed the patient's lab results. Labs: Laboratory Results - last 24 hr 03/04/22 03/04/22 18:00 18:00 WBC 7.9 RBC 5.07 Hgb 16.3 Hct 47.6 MCV 93.9 MCH 32.1 H MCHC 34.2 RDW Std Deviation 44.2 H RDW Coeff of Alina 12.9 Plt Count 245 MPV 9.2 Immature Gran % (Auto) 0.400 Neut % (Auto) 64.3 Lymph % (Auto) 21.0 Emmet % (Auto) 10.4 H Eos % (Auto) 3.4 Baso % (Auto) 0.5 Absolute Neuts (auto) 5.1 Absolute Lymphs (auto) 1.65 Nucleated RBC % 0 Sodium 141 Potassium 3.5 Chloride 106 Carbon Dioxide 25.0 Anion Gap 10 BUN 13 Creatinine 0.80 Estim Creat Clear Calc 95.65 Est GFR (MDRD) Af Amer 124 Est GFR (MDRD) Non-Af 102 BUN/Creatinine Ratio 16.3 Glucose 133 H Calcium 8.8 EKG Initial EKG: Attestation: I personally reviewed and interpreted this EKG as follows: Comments: Sinus arrhythmia with bradycardia heart rate of 49, no signs of heart block. QTc 446. Discharge Plan Triage Chief Complaint: Syncope ED Provider: Burt Melissa Dx/Rx/DC Orders Clinical Impression: Vertigo, History of hypertension, HLD (hyperlipidemia) Instructions: ED Vertigo, Unspecified Prescriptions: New metoclopramide HCl [Reglan] 5 mg tablet 5 mg PO TID PRN PRN (Reason: dizziness or vertigo) Qty: 10 0RF No Action pantoprazole 40 mg tablet,delayed release (DR/EC) 40 mg PO DAILY atorvastatin 40 mg tablet 40 mg PO QHS Qty: 90 3RF Label Comments: CHOLESTEROL diltiazem HCl 360 mg capsule,extended release 24hr 360 mg PO QDAY Qty: 90 3RF apixaban 5 mg tablet 5 mg PO BID Qty: 180 3RF Label Comments: BLOOD THINNER Primary Care Provider: Dima Mario Referrals: Dima Mario DO [Primary Care Provider] - 3-5 Days Activity Restrictions/Additional Instructions: EKG sinus arrhythmia no acute changes. Labs are stable. Your clinical symptoms concerning for vertigo. Use Reglan as needed. Disposition Disposition: Home, Self Care Discharge Date/Time: 03/04/22 21:13
[2022-03-04 18:48] LABS: Absolute Lymphocyte Count 1.65 X10^3/uL (0.83-4.51); Absolute Neutrophil Count 5.1 X10^3/uL (2.0-7.7); Basophil# 0.04 X10^3/uL; Basophil% 0.5 % (0-1); Eosinophil# 0.27 X10^3/uL; Eosinophils% 3.4 % (0-5); Hematocrit 47.6 % (40-54); Hemoglobin 16.3 g/dL (13.0-16.5); Lymphocyte # 1.65 X10^3/ul (0.83-4.51); Mean Corp Hgb Conc 34.2 g/dL (32-36); Mean Corpuscular Hgb 32.1 pg (27.0-32.0); Mean Corpuscular Volume 93.9 fL (80-94); Mean Platelet Vol. 9.2 fl (6.2-12.0); Monocyte# 0.82 X10^3/uL; Monocyte% 10.4 % (0-10); NRBC Flagged by Analyzer 0 % (0-5); Neutrophil # 5.06 X10^3/uL (2.7-7.7); Neutrophil % 64.3 % (47-70); Platelet Count 245 K/mm3 (150-450); RBC Distribution Width CV 12.9 % (11.6-14.6); RBC Distribution Width SD 44.2 fl (35.1-43.9); Red Blood Count 5.07 M/mm3 (4.6-6.2); White Blood Count 7.9 K/mm3 (4.4-11.0)
[2022-03-04 18:58] LABS: BUN 13 mg/dL (7-18); Estimated Creatinine Clearance 95.65 ml/min; Glucose 133 mg/dL (74-106)
[2022-03-04 18:59] LABS: Anion Gap 10 (5-15); BUN/Creat Ratio 16.3 RATIO (10-20); Calcium,Total 8.8 mg/dL (8.5-10.1); Chloride 106 mmol/L (98-107); EST Glomerular Filtration Rate 102 mL/min (>60); Est Glom Filt Rate - Afr Amer 124 mL/min (>60); Potassium 3.5 mmol/L (3.5-5.1); Sodium Level 141 mmol/L (136-145)
[2022-03-04] MEDS: Metoclopramide 10 MG/2 ML Vial 5 MG IV (19:29)
[2022-03-04 20:00] VITALS: BP 132/76; PULSE 68; RESP 14; O2SAT 92
[2022-03-04 21:06] VITALS: BP 133/89; PULSE 68; RESP 16; O2SAT 93
== END 2022-03-04 21:13 | disposition home or self-care (01) ==
PROVIDERS: Emergency Provider Emergency Medicine; PCP Student in an Organized Health Care Education/Training Program; Visit Provider Emergency Medicine
DX: R55 Syncope and collapse (principal); E78.5 Hyperlipidemia, unspecified; I10 Essential (primary) hypertension; R42 Dizziness and giddiness; K21.9 Gastro-esophageal reflux disease without esophagitis; Z86.73 Personal history of transient ischemic attack (TIA), and cerebral infarction without residual deficits; G47.33 Obstructive sleep apnea (adult) (pediatric); Z86.16 Personal history of COVID-19; Z86.718 Personal history of other venous thrombosis and embolism
CPT/HCPCS: 80048; 85025; 93005; 96361; 96374; 99285; A4216

== ENCOUNTER → 2022-10-14 | Outpatient (CLI) | payer MEDICARE, BC, SELFPAY ==
[2022-10-14 16:39] LABS: Absolute Neutrophil Count 5.1 X10^3/uL (2.0-7.7); Basophil# 0.05 X10^3/uL; Basophil% 0.6 % (0-1); Eosinophil# 0.28 X10^3/uL; Eosinophils% 3.5 % (0-5); Hematocrit 46.8 % (40-54); Hemoglobin 15.2 g/dL (13.0-16.5); Lymphocyte % 21.3 % (19-41); Mean Corp Hgb Conc 32.5 g/dL (32-36); Mean Corpuscular Hgb 31.9 pg (27.0-32.0); Mean Corpuscular Volume 98.1 fL (80-94); Mean Platelet Vol. 9.3 fl (6.2-12.0); Monocyte# 0.85 X10^3/uL; Monocyte% 10.7 % (0-10); NRBC Flagged by Analyzer 0 % (0-5); Neutrophil # 5.06 X10^3/uL (2.7-7.7); Neutrophil % 63.5 % (47-70); Platelet Count 234 K/mm3 (150-450); RBC Distribution Width CV 12.4 % (11.6-14.6); Red Blood Count 4.77 M/mm3 (4.6-6.2)
== END | disposition home or self-care (01) ==
LOC: LAB 15:51
PROVIDERS: PCP Student in an Organized Health Care Education/Training Program; Referring Provider Internal Medicine Gastroenterology; Visit Provider Internal Medicine Gastroenterology
DX: K62.5 Hemorrhage of anus and rectum (principal)
CPT/HCPCS: 36415; 85025

== ENCOUNTER 2023-05-05 08:37 | Emergency (ER) | payer MEDICARE, SELFPAY ==
[2023-05-05 08:38] VITALS: BP 139/92; PULSE 93; PULSE 98; RESP 15; TEMP 36.4; O2SAT 94; BMI 29.0
[2023-05-05 08:59] VITALS: BP 119/81; BP 122/110; BP 124/101; PULSE 61; PULSE 85; PULSE 99
[2023-05-05 09:17] LABS: Absolute Lymphocyte Count 1.09 X10^3/uL (0.83-4.51); Absolute Neutrophil Count 3.4 X10^3/uL (2.0-7.7); Basophil# 0.03 X10^3/uL; Basophil% 0.6 % (0-1); Eosinophil# 0.24 X10^3/uL; Eosinophils% 4.4 % (0-5); Hematocrit 46.2 % (40-54); Hemoglobin 15.7 g/dL (13.0-16.5); Lymphocyte # 1.09 X10^3/ul (0.83-4.51); Mean Corpuscular Hgb 32.8 pg (27.0-32.0); Mean Corpuscular Volume 96.5 fL (80-94); Mean Platelet Vol. 9.4 fl (6.2-12.0); Monocyte# 0.66 X10^3/uL; Monocyte% 12.1 % (0-10); NRBC Flagged by Analyzer 0 % (0-5); Neutrophil # 3.42 X10^3/uL (2.7-7.7); Neutrophil % 62.7 % (47-70); Platelet Count 221 K/mm3 (150-450); RBC Distribution Width CV 13.1 % (11.6-14.6); RBC Distribution Width SD 46.7 fl (35.1-43.9); Red Blood Count 4.79 M/mm3 (4.6-6.2); White Blood Count 5.5 K/mm3 (4.4-11.0)
[2023-05-05 09:23] LABS: Anion Gap 3 (5-15); BUN 9 mg/dL (7-18); BUN/Creat Ratio 10.4 RATIO (10-20); Calcium,Total 8.6 mg/dL (8.5-10.1); Chloride 109 mmol/L (98-107); Creatinine, Serum 0.86 mg/dL (0.70-1.30); EST Glomerular Filtration Rate 93 mL/min (>60); Est Glom Filt Rate - Afr Amer 112 mL/min (>60); Estimated Creatinine Clearance 96.47 ml/min; Glucose 84 mg/dL (74-106); Sodium Level 140 mmol/L (136-145)
[2023-05-05 10:13] VITALS: BP 136/80; PULSE 67; RESP 19; O2SAT 94
--- NOTE | 2023-05-05 11:48 | ED.VIS.GI ---
HPI HPI - GI History of Present Illness Chief Complaint: GI Bleed Informant: patient Narrative Narrative: Patient presenting with intermittent rectal bleeding for the past 2-3 days. He is on Eliquis because of a history of a stroke and A-fib flutter, so we discontinued it, which is what he has done when this is occurred in the past. Usually the bleeding stops and then he goes a couple days and restarts his Eliquis without any issues. However this morning he is still bleeding. It is intermittent. He states the bowl is red and he is having a hard time estimating how much blood is coming out when he has it. He denies any abdominal pain, nausea, vomiting, lightheadedness or syncope or any other symptoms. He states he has had colonoscopies by Dr. Marin in the past, he said he had his last screening colonoscopy and he was told he did not need any more, he states they were always normal. [facility] Medical History Acute deep vein thrombosis (DVT) of axillary vein of right upper extremity Atypical atrial flutter Cardioembolic stroke (10/2015) COVID-19 virus detected (10/2019) Effusion, right knee Esophagitis Essential hypertension GERD (gastroesophageal reflux disease) History of CVA (cerebrovascular accident) (10/2015) HLD (hyperlipidemia) Localized edema ALCIRA (obstructive sleep apnea) Osteoarthritis of right knee Right subclavian vein thrombosis SVT (supraventricular tachycardia) Thoracic aortic aneurysm (TAA) Ureteral stone Home Medications pantoprazole 40 mg tablet,delayed release 40 mg PO DAILY 12/23/20 [History Last Taken Unknown] dupilumab 300 mg/2 mL subcutaneous pen injector (Dupixent) 300 mg subcut QWEEK 06/22/22 [History Last Taken Unknown] atorvastatin 40 mg tablet 40 mg PO QHS #90 tabs 01/20/23 [Rx Last Taken Unknown] apixaban 5 mg tablet 5 mg PO BID #180 tabs 03/07/23 [Rx Last Taken Unknown] diltiazem HCl 360 mg capsule,extended release 24 hr See Rx Instructions .Route .COMPLEX #90 caps 05/04/23 [Rx Last Taken Unknown] Allergy/AdvReac Type Severity Reaction Status Date / Time No Known Allergies Allergy Verified 05/05/23 08:40 Family History Brother CVA (cerebral vascular accident) Brother Diabetes Brother Diabetes Surgical History History of appendectomy hx ureteral excision hx ureteral reimplantation Social History Smoking Status: Never smoker alcohol intake: current alcohol intake frequency: a few times a week Alcohol type: beer substance use type: does not use caffeine: Yes Type: coffee Number of servings: 1 ROS ROS ED Constitutional Constitutional ED: Denies chills or fever(s) Eyes Eyes: Denies change in vision or diplopia ENT ENT ED: Denies rhinorrhea or sore throat Cardiovascular Cardiovascular: Denies chest pain, lightheadedness, palpitations or syncope Respiratory/Chest Respiratory/Chest: Denies cough or dyspnea Gastrointestinal Gastrointestinal: Reports hematochezia; Denies abdominal pain, diarrhea, hematemesis, melena, nausea or vomiting Genitourinary Genitourinary ED: Denies dysuria or hematuria Musculoskeletal Musculoskeletal: Denies back pain or neck pain Integumentary Denies abscess or rash Neurologic Neurologic: Denies headache(s), paresthesias or weakness Psychiatric Psychiatric: Denies anxiety or suicidal thoughts EXAM Physical Exam Const Vital Signs: 05/05/23 08:38 05/05/23 08:38 05/05/23 08:59 Temperature 97.5 F L 97.5 F L Temperature Source Temporal Temporal Pulse Rate 93 98 Pulse Rate [Lying] 61 Pulse Rate [Sitting (for 1 minute prior to obtaining)] 85 Pulse Rate [Standing (for 1 minute prior to obtaining)] 99 Respiratory Rate 15 15 Blood Pressure 139/92 H 139/92 H Blood Pressure [Lying] 119/81 H Blood Pressure [Sitting (for 1 minute prior to obtaining)] 122/110 H Blood Pressure [Standing (for 1 minute prior to obtaining)] 124/101 H Blood Pressure Mean 107 107 Blood Pressure Mean [Lying] 93 Blood Pressure Mean [Sitting (for 1 minute prior to obtaining)] 114 Blood Pressure Mean [Standing (for 1 minute prior to obtaining)] 108 Pulse Ox 94 94 Oxygen Delivery Method Room Air Room Air 05/05/23 10:13 03/29/24 12:00 Temperature Temperature Source Pulse Rate 67 82 Pulse Rate [Lying] Pulse Rate [Sitting (for 1 minute prior to obtaining)] Pulse Rate [Standing (for 1 minute prior to obtaining)] Respiratory Rate 19 H 16 Blood Pressure 136/80 H 113/82 H Blood Pressure [Lying] Blood Pressure [Sitting (for 1 minute prior to obtaining)] Blood Pressure [Standing (for 1 minute prior to obtaining)] Blood Pressure Mean 98 92 Blood Pressure Mean [Lying] Blood Pressure Mean [Sitting (for 1 minute prior to obtaining)] Blood Pressure Mean [Standing (for 1 minute prior to obtaining)] Pulse Ox 94 94 Oxygen Delivery Method Room Air Room Air Positive well nourished and well developed General Appearance ED: well developed and NAD HEENT Reports moist mucous membranes normocephalic and atraumatic Eyes PERRL and EOMs intact bilaterally Neck full ROM and supple Resp normal respiratory effort and clear to auscultation bilaterally Cardio regular rate, regular rhythm and no murmurs GI non-tender and non-distended GI Narrative: On rectal, there is blood present but no active bleeding and no pooling on ORI. No tenderness or sign of an abscess or external hemorrhoid. Auscultation: normoactive bowel sounds Palpation: soft Back/Spine no CVA tenderness General Back: other FROM Extremity normal to inspection General Extremety ED: Negative for edema, pulses abnormal or tenderness General Extremity: Negative for edema or pulses abnormal Neuro oriented x3, CN's II-XII intact bilaterally and no sensory deficits noted Sensorium / Orientation: awake and alert Motor Exam: strength 5/5 throughout Skin no rashes or lesions noted and no wounds MDM MDM MDM Narrative Medical decision making narrative: Orthostatics were borderline with regards to his pulse going up a little over 30 but he was asymptomatic, and his blood counts look great at 15.7 hemoglobin. Otherwise his blood pressure has remained stable. He has had no other episodes of bleeding while he has been here. Discussed with Dr. Marin, he agrees reasonable to have the patient discharged home and he we will attempt to follow-up with him closely as an outpatient just after the weekend, I discussed this with the patient and his significant other, they are comfortable with this plan I did offer admission and he declines, we both advised that he keep off of his Eliquis until he is seen in follow-up, and if he has any worsening, to return to the ER for reevaluation and possible admission immediately. Lab Data Attestation: I reviewed the patient's lab results. Labs: Laboratory Results - last 24 hr 05/05/23 09:05 WBC 5.5 RBC 4.79 Hgb 15.7 Hct 46.2 MCV 96.5 H MCH 32.8 H MCHC 34.0 RDW Std Deviation 46.7 H RDW Coeff of Alina 13.1 Plt Count 221 MPV 9.4 Immature Gran % (Auto) 0.200 Neut % (Auto) 62.7 Lymph % (Auto) 20.0 [place]linger % (Auto) 12.1 H Eos % (Auto) 4.4 Baso % (Auto) 0.6 Absolute Neuts (auto) 3.4 Absolute Lymphs (auto) 1.09 Nucleated RBC % 0 Sodium 140 Potassium 4.0 Chloride 109 H Carbon Dioxide 28.0 Anion Gap 3 L BUN 9 Creatinine 0.86 Estim Creat Clear Calc 96.47 Est GFR (MDRD) Af Amer 112 Est GFR (MDRD) Non-Af 93 BUN/Creatinine Ratio 10.4 Glucose 84 Calcium 8.6 Management Discussion w/another healthcare provider: Clinical Marketing Manager (MJ Marin) Discharge Plan Triage Chief Complaint: GI Bleed ED Provider: Nish Shepherd Dx/Rx/DC Orders Clinical Impression: Anticoagulated, Acute lower gastrointestinal bleeding Instructions: ED Lower GI Bleeding (Stable) Prescriptions: Continued pantoprazole 40 mg tablet,delayed release (DR/EC) 40 mg PO DAILY Dupixent Pen 300 mg/2 mL pen injector 300 mg subcut QWEEK atorvastatin 40 mg tablet 40 mg PO QHS Qty: 90 3RF Patient Comments: CHOLESTEROL diltiazem HCl 360 mg capsule,extended release 24hr See Rx Instructions .ROUTE .COMPLEX Qty: 90 3RF Dose Instruction: Take 1 capsule by mouth once daily Rx Instructions: Take 1 capsule by mouth once daily Held apixaban 5 mg tablet 5 mg PO BID Qty: 180 3RF Hold Instructions: until seen by Dr. Marin Patient Comments: BLOOD THINNER Primary Care Provider: Dima Mario Referrals: Dima Mario DO [Primary Care Provider] - Shun Marin MD [Non-Staff] - As soon as possible Disposition Disposition: Home, Self Care
[2023-05-05 12:00] VITALS: BP 113/82; PULSE 82; RESP 16; O2SAT 94
[2023-05-05 12:47] VITALS: BP 117/73; PULSE 80; RESP 16; TEMP 36.6; O2SAT 97
== END 2023-05-05 12:48 | disposition home or self-care (01) ==
PROVIDERS: Emergency Provider Emergency Medicine; PCP Student in an Organized Health Care Education/Training Program; Visit Provider Emergency Medicine
DX: K92.2 Gastrointestinal hemorrhage, unspecified (principal); K21.00 Gastro-esophageal reflux disease with esophagitis, without bleeding; Z79.01 Long term (current) use of anticoagulants; Z86.73 Personal history of transient ischemic attack (TIA), and cerebral infarction without residual deficits; E78.5 Hyperlipidemia, unspecified; Z79.899 Other long term (current) drug therapy; Z90.49 Acquired absence of other specified parts of digestive tract
CPT/HCPCS: 80048; 85025; 99284; J7030; A4216

== ENCOUNTER 2023-05-15 15:18 | Emergency (ER) | payer MEDICARE, SELFPAY ==
[2023-05-15 15:19] VITALS: BP 113/71; PULSE 59; RESP 16; TEMP 35.6; O2SAT 97; BMI 28.2
--- NOTE | 2023-05-15 15:36 | ED.VIS.GI ---
HPI HPI - GI History of Present Illness Chief Complaint: Nausea/Vomiting/Diarrhea Informant: patient Abdominal Pain/Flank Pain Onset: Today Context: Gradual Onset Timing: Continuous Current Severity: Mild Maximum Severity: Mild Worsened by: Nothing Relieved by: Nothing Nausea/Vomiting/Emesis GI Symptom: Positive for Nausea and Vomiting Onset: Today Severity: Mild Diarrhea/Melena/Hematochezia GI Symptom: Positive for Diarrhea; Negative for Melena or Hematochezia Onset: Today Stool Quality: Positive for Loose Associated Symptoms Associated Symptoms: Negative for Dysuria, Frequency, Hematuria or Urgency Narrative Narrative: 72-year-old male history of GI bleed a week ago was not admitted. History of DVT and a flutter on Eliquis and prior stroke. Only prior abdominal surgery was an appendectomy 57 years ago. Since 4 AM this morning he started having nausea, vomiting and diarrhea. No hematemesis. No melena. No p.o. intake. Really no significant abdominal pain. Prior similar symptoms: Yes Recent Illness/Hospitalization: No PFSH PFSH Medical History Acute deep vein thrombosis (DVT) of axillary vein of right upper extremity Atypical atrial flutter Cardioembolic stroke (10/2015) COVID-19 virus detected (10/2019) Effusion, right knee Esophagitis Essential hypertension GERD (gastroesophageal reflux disease) History of CVA (cerebrovascular accident) (10/2015) HLD (hyperlipidemia) Localized edema ALCIRA (obstructive sleep apnea) Osteoarthritis of right knee Right subclavian vein thrombosis SVT (supraventricular tachycardia) Thoracic aortic aneurysm (TAA) Ureteral stone Home Medications pantoprazole 40 mg tablet,delayed release 40 mg PO DAILY 12/23/20 [History Last Taken Unknown] dupilumab 300 mg/2 mL subcutaneous pen injector (Dupixent) 300 mg subcut QWEEK 06/22/22 [History Last Taken Unknown] atorvastatin 40 mg tablet 40 mg PO QHS #90 tabs 01/20/23 [Rx Last Taken Unknown] apixaban 5 mg tablet 5 mg PO BID #180 tabs 03/07/23 [Rx Last Taken Unknown] diltiazem HCl 360 mg capsule,extended release 24 hr See Rx Instructions .Route .COMPLEX #90 caps 05/04/23 [Rx Last Taken Unknown] ondansetron 4 mg disintegrating tablet 4 mg PO Q6H PRN nausea and vomiting #10 tabs 05/15/23 [Rx Last Taken Unknown] sildenafil 100 mg tablet 100 mg PO DAILY PRN intercourse 05/15/23 [History Last Taken Unknown] Allergy/AdvReac Type Severity Reaction Status Date / Time No Known Allergies Allergy Verified 05/05/23 08:40 Family History Brother CVA (cerebral vascular accident) Brother Diabetes Brother Diabetes Surgical History History of appendectomy hx ureteral excision hx ureteral reimplantation Social History Smoking Status: Never smoker alcohol intake: current alcohol intake frequency: a few times a week Alcohol type: beer substance use type: does not use caffeine: Yes Type: coffee Number of servings: 1 ROS ROS ED ROS Narrative Nausea, vomiting and diarrhea. No fever. No abdominal pain. No dysuria. Review of Systems ROS Unobtainable: Denies due to encephalopathy Constitutional Constitutional ED: Denies chills or fever(s) ENT ENT ED: Denies ear pain Cardiovascular Cardiovascular: Denies chest pain or palpitations Respiratory/Chest Respiratory/Chest: Denies cough or dyspnea Gastrointestinal Gastrointestinal: Reports diarrhea, nausea and vomiting; Denies abdominal pain, constipation or melena Genitourinary Genitourinary ED: Denies dysuria or hematuria Musculoskeletal Musculoskeletal: Denies arthralgias or back pain Integumentary Denies abscess or Abrasions Neurologic Neurologic: Denies headache(s) Psychiatric Psychiatric: Denies anxiety Endocrine Endocrinology: Denies polydipsia Hematologic/Lymphatic Hematologic/Lymphatic: Denies easy bleeding, easy bruising or lymphadenopathy Allergic/Immunologic Allergic/Immunologic ED: Denies mouth swelling, tongue swelling or urticaria EXAM Physical Exam Narrative Exam Narrative: Well-appearing 72-year-old male. Vital signs stable afebrile. H EENT exam unremarkable except mild dry mucous membranes. Neck nontender no JVD. Lungs clear to auscultation bilaterally. Heart regular rhythm rate about 60 no murmur appreciated. Chest wall and ribs nontender. Abdomen soft, nontender, nondistended, normal bowel sounds without peritoneal signs. No signs of obstruction. No right upper or lower quadrant tenderness. Moving all 4 extremities. Calves are nontender without edema or cords. Neurologically is awake and alert with no focal motor deficits. He is awake and alert. Answering questions following commands. Const Vital Signs: 05/15/23 15:19 05/15/23 17:35 Temperature 96.0 F L 97.2 F L Temperature Source Temporal Oral Pulse Rate 59 L 68 Respiratory Rate 16 15 Blood Pressure 113/71 119/72 Blood Pressure Mean 85 87 Pulse Ox 97 96 Oxygen Delivery Method Room Air Room Air Positive well developed; Negative for cachectic, contractures or unkempt General Appearance ED: well developed and NAD; Negative for unkempt, cachectic, contractures or pallor Nutritional Appearance: Negative for cachectic HEENT Reports dry mucous membranes; Denies moist mucous membranes atraumatic; Negative for trauma or tenderness Mouth ED: Yes dry mucous membranes Mouth: dry mucous membranes Eyes PERRL and EOMs intact bilaterally General Eye ED: Negative for pale conjunctiva or scleral icterus Neck no lymphadenopathy, supple and no JVD General: Negative for tenderness Lymph Lymphatic: Negative for other Resp normal respiratory effort and clear to auscultation bilaterally Effort and Inspection: Negative for respiratory distress Auscultation: Negative for rales, rhonchi or wheezes Cardio regular rate, regular rhythm, S1 normal heart sound, S2 normal heart sound and no murmurs Rate: Negative for bradycardia GI non-tender, non-distended and no masses Inspection: Negative for abdominal distention Auscultation: normoactive bowel sounds Palpation: soft; Negative for tender, guarding or rebound tenderness present Back/Spine no CVA tenderness General Back: Negative for CVA tenderness Cervical Spine: Negative for cervical spine tenderness Thoracic Spine / Upper Back: Negative for thoracic spinal tenderness Lumbar Spine / Lower Back: Negative for lumbar spinal tenderness Coccyx: Negative for other Extremity full ROM General Extremety ED: Negative for edema or tenderness General Extremity: Negative for edema Neuro CN's II-XII intact bilaterally and moves all extremities Sensorium / Orientation: alert, oriented to person, oriented to place and oriented to time; Negative for orientation impaired, confused, lethargic or stuporous Motor Exam: strength 5/5 throughout Psych mental status grossly normal and thought process normal Appearance: Negative for unkempt Attitude: No agitated Mood & Affect: Negative for depressed, anxious or tearful Skin General Skin Exam: Negative for jaundice or pallor Lesions: no lesions Rashes: no rashes Trauma: Negative for abrasion Nails: Negative for discolored MDM MDM MDM Narrative Medical decision making narrative: 72-year-old male, nausea, vomiting and diarrhea suspect viral gastroenteritis. Abdomen is benign. He will receive IV fluids and Zofran. P.o. fluid challenge. Screening labs. Repeat exam patient is doing well at 5:45 PM. He feels much better. His nausea resolved. He was given a liter normal saline. He is comfortable being discharged home on Zofran. I will send a prescription to his pharmacy. Follow-up to ensure he is improving return if worse. I did a repeat abdominal exam is completely benign and nontender. His history and exam are consistent with a viral gastroenteritis. History & Record Review Discussion w/independent historian: Patient and Family Additional record(s) reviewed:: Prior inpatient record, Prior outpatient record, Prior ED visit and Prior labs Lab Data Attestation: I reviewed the patient's lab results. Lab results narrative: CBC showed a white count 13.8. H&H is 17.1 and 51. Platelets 214. Electrolytes show a gap of 6. BUN and creatinine 26 and 1.48. Glucose 150. Labs: Laboratory Results - last 24 hr 05/15/23 16:15 WBC 13.8 H RBC 5.38 Hgb 17.1 H Hct 51.6 MCV 95.9 H MCH 31.8 MCHC 33.1 RDW Std Deviation 46.9 H RDW Coeff of Alina 13.2 Plt Count 214 MPV 9.7 Immature Gran % (Auto) 0.300 Neut % (Auto) 94.0 H Lymph % (Auto) 2.0 L [place] % (Auto) 3.5 Eos % (Auto) 0.0 Baso % (Auto) 0.2 Absolute Neuts (auto) 12.9 H Absolute Lymphs (auto) 0.27 L Nucleated RBC % 0 Sodium 139 Potassium 4.6 Chloride 107 Carbon Dioxide 26.0 Anion Gap 6 BUN 26 H Creatinine 1.48 H Estim Creat Clear Calc 55.39 Est GFR (MDRD) Af Amer 60 Est GFR (MDRD) Non-Af 50 L BUN/Creatinine Ratio 17.6 Glucose 150 H Calcium 8.7 Discharge Plan Triage Chief Complaint: Nausea/Vomiting/Diarrhea ED Provider: Twan Olivas Dx/Rx/DC Orders Clinical Impression: Nausea vomiting and diarrhea, Acute dehydration, Viral gastroenteritis, Chronic anticoagulation, History of GI bleed, History of atrial flutter Instructions: ED Gastroenteritis, Viral (Adult) Prescriptions: New ondansetron 4 mg tablet,disintegrating 4 mg PO Q6H PRN (Reason: nausea and vomiting) Qty: 10 0RF No Action pantoprazole 40 mg tablet,delayed release (DR/EC) 40 mg PO DAILY Dupixent Pen 300 mg/2 mL pen injector 300 mg subcut QWEEK sildenafil 100 mg tablet 100 mg PO DAILY PRN (Reason: intercourse) atorvastatin 40 mg tablet 40 mg PO QHS Qty: 90 3RF Patient Comments: CHOLESTEROL apixaban 5 mg tablet 5 mg PO BID Qty: 180 3RF Hold Instructions: until seen by Dr. Marin Patient Comments: BLOOD THINNER diltiazem HCl 360 mg capsule,extended release 24hr See Rx Instructions .ROUTE .COMPLEX Qty: 90 3RF Dose Instruction: Take 1 capsule by mouth once daily Rx Instructions: Take 1 capsule by mouth once daily Primary Care Provider: Dima Mario Referrals: Dima Mario, [Primary Care Provider] - Activity Restrictions/Additional Instructions: Plenty of fluids and rest. Slowly increase your diet as tolerated. Start with water, 7-Up Gatorade. Zofran as needed for nausea you may swallow it or let it dissolve in your tongue. If you are not nauseated or vomiting you do not need to take it at all. Follow-up with your doctor if not improving or return if worse. Disposition Disposition: Home, Self Care
[2023-05-15] MEDS: Ondansetron 4 MG/2 ML Vial IV (16:17)
[2023-05-15] MEDS: 0.9% Normal Saline (1000mL) 1,000 ML 1000 ML IV (16:17)
[2023-05-15 16:23] LABS: Absolute Lymphocyte Count 0.27 X10^3/uL (0.83-4.51); Absolute Neutrophil Count 12.9 X10^3/uL (2.0-7.7); Basophil# 0.03 X10^3/uL; Basophil% 0.2 % (0-1); Hematocrit 51.6 % (40-54); Hemoglobin 17.1 g/dL (13.0-16.5); Lymphocyte # 0.27 X10^3/ul (0.83-4.51); Mean Corp Hgb Conc 33.1 g/dL (32-36); Mean Corpuscular Hgb 31.8 pg (27.0-32.0); Mean Corpuscular Volume 95.9 fL (80-94); Mean Platelet Vol. 9.7 fl (6.2-12.0); Monocyte# 0.48 X10^3/uL; Monocyte% 3.5 % (0-10); NRBC Flagged by Analyzer 0 % (0-5); Neutrophil # 12.94 X10^3/uL (2.7-7.7); POSITIVE DIFFERENTIAL YES; Platelet Count 214 K/mm3 (150-450); RBC Distribution Width CV 13.2 % (11.6-14.6); RBC Distribution Width SD 46.9 fl (35.1-43.9); Red Blood Count 5.38 M/mm3 (4.6-6.2); White Blood Count 13.8 K/mm3 (4.4-11.0)
[2023-05-15 17:05] LABS: Anion Gap 6 (5-15); BUN 26 mg/dL (7-18); BUN/Creat Ratio 17.6 RATIO (10-20); Calcium,Total 8.7 mg/dL (8.5-10.1); Chloride 107 mmol/L (98-107); Creatinine, Serum 1.48 mg/dL (0.70-1.30); EST Glomerular Filtration Rate 50 mL/min (>60); Est Glom Filt Rate - Afr Amer 60 mL/min (>60); Estimated Creatinine Clearance 55.39 ml/min; Glucose 150 mg/dL (74-106); Potassium 4.6 mmol/L (3.5-5.1); Sodium Level 139 mmol/L (136-145)
[2023-05-15 17:35] VITALS: BP 119/72; PULSE 68; RESP 15; TEMP 36.2; O2SAT 96
[2023-05-15 18:20] VITALS: BP 128/73; PULSE 76; RESP 15; TEMP 36.2; O2SAT 96
== END 2023-05-15 18:21 | disposition home or self-care (01) ==
PROVIDERS: Emergency Provider Emergency Medicine; PCP Student in an Organized Health Care Education/Training Program; Visit Provider Emergency Medicine
DX: E86.0 Dehydration (principal); A08.4 Viral intestinal infection, unspecified; Z79.01 Long term (current) use of anticoagulants; K21.00 Gastro-esophageal reflux disease with esophagitis, without bleeding; Z86.73 Personal history of transient ischemic attack (TIA), and cerebral infarction without residual deficits; Z86.718 Personal history of other venous thrombosis and embolism; Z86.16 Personal history of COVID-19; I10 Essential (primary) hypertension; E78.5 Hyperlipidemia, unspecified; G47.33 Obstructive sleep apnea (adult) (pediatric); R11.2 Nausea with vomiting, unspecified
CPT/HCPCS: 80048; 85025; 96361; 96374; 99282; J7030; J2405

== ENCOUNTER → 2023-07-19 | Outpatient (CLI) | payer MEDICARE, SELFPAY ==
[2023-07-19 15:00] LABS: Anion Gap 4 (5-15); BUN 10 mg/dL (7-18); BUN/Creat Ratio 11.9 RATIO (10-20); Calcium,Total 8.8 mg/dL (8.5-10.1); Chloride 106 mmol/L (98-107); Creatinine, Serum 0.84 mg/dL (0.70-1.30); EST Glomerular Filtration Rate 96 mL/min (>60); Est Glom Filt Rate - Afr Amer 116 mL/min (>60); Glucose 96 mg/dL (74-106); Magnesium 2.3 mg/dL (1.6-2.6); Potassium 3.5 mmol/L (3.5-5.1); Sodium Level 140 mmol/L (136-145)
== END | disposition home or self-care (01) ==
LOC: LAB 13:42
PROVIDERS: PCP Student in an Organized Health Care Education/Training Program; Referring Provider Nurse Practitioner Gerontology; Visit Provider Nurse Practitioner Gerontology
DX: R42 Dizziness and giddiness (principal)
CPT/HCPCS: 36415; 80048; 83735

== ENCOUNTER → 2023-08-04 | Outpatient (CLI) | payer MEDICARE, SELFPAY ==
--- NOTE | 2023-08-04 13:03 | ECHOD_ITS ---
Reason For Study: Dyspnea Procedure This was a 2D Doppler, Color Flow transthoracic echocardiogram. Exam performed in department. Left Ventricle Normal LV size. Left ventricular systolic function is normal. The left ventricular ejection fraction is 55 %. Stage 1 diastolic dysfunction. No regional wall motion abnormalities noted. Right Ventricle Normal RV size. Normal systolic function. Atria Normal left atrium. Normal right atrium. Mitral Valve Normal mitral valve. Tricuspid Valve Normal tricuspid valve. Mild tricuspid valve insufficiency. Pulmonary artery systolic pressure is 24 mmHg. Aortic Valve Trisinus/trileaflet aortic valve. Trivial aortic valve insufficiency. Pulmonic Valve Normal pulmonic valve. Great Vessels Mild to moderately dilated aortic root. The pulmonary artery is normal size. Normal inferior vena cava. Pericardium/Pleural No pericardial effusion. MMode/2D Measurements & Calculations LVIDd: 5.8 cm IVSd: 1.1 cm Ao root diam: 4.4 cm LVIDs: 4.5 cm LVPWd: 0.81 cm RVDd: 4.6 cm FS: 22.1 % LAV(MOD-bp): 50.9 ml LVAd ap4: 35.4 cm2 SV(MOD-sp4): 66.9 ml LAV(MOD-bp) Indexed: 23.2 ml/m2 LVLd ap4: 8.2 cm LAV(MOD-sp2): 50.1 ml EDV(MOD-sp4): 126.3 ml LAV(MOD-sp4): 46.6 ml EDV(sp4-el): 128.8 ml LVAs ap4: 22.2 cm2 LVLs ap4: 7.0 cm ESV(MOD-sp4): 59.4 ml ESV(sp4-el): 60.1 ml EF(MOD-sp4): 53.0 % EF(sp4-el): 53.3 % SV(sp4-el): 68.6 ml LA A4 area: 18.9 cm2 LA dimension(2D): 3.9 cm RA A4 area: 15.0 cm2 TAPSE: 2.8 cm Time Measurements MV dec time: 0.31 sec Doppler Measurements & Calculations MV E max robin: 35.3 cm/sec Lat Peak E' Robin: 12.2 cm/sec Med Peak E' Robin: 7.3 cm/sec MV A max robin: 57.5 cm/sec E/E' lat: 2.9 E/E' med: 4.8 MV E/A: 0.61 Ao V2 max: 102.5 cm/sec AI max robin: 344.9 cm/sec MV dec slope: 114.2 cm/sec2 Ao max P.2 mmHg AI max P.7 mmHg Ao V2 mean: 81.8 cm/sec Ao mean P.8 mmHg AI dec slope: 210.6 cm/sec2 Ao V2 VTI: 24.9 cm AI P1/2t: 479.8 msec LV V1 max: 82.8 cm/sec PA V2 max: 83.0 cm/sec PI end-d robin: 96.8 cm/sec LV V1 max P.7 mmHg TR max robin: 225.0 cm/sec TR max P.3 mmHg ECHO/Echo Complete Interpretation Summary Normal LV size. Left ventricular systolic function is normal. The left ventricular ejection fraction is 55 %. Mild to moderately dilated aortic root. Stage 1 diastolic dysfunction. Ordering Physician: Ivis Gee Referring Physician: Dima Mario Performed By: Danielle Lennon, CHRISTY, RVT
--- NOTE | 2023-08-04 13:04 | CT_ITS ---
ACR Level 3 findings have been noted. An addendum which confirms receipt of the report will follow. EXAM: CT ANGIOGRAPHY CHEST WITH INTRAVENOUS CONTRAST CLINICAL INDICATION: known TAA TECHNIQUE: Helically acquired angiography images were obtained of the chest with intravenous contrast. This CT exam was performed using one or more of the following dose reduction techniques: automated exposure control, adjustment of the mA and/or kV according to patient size, and/or use of iterative reconstruction technique. MIP reconstructed images were created and reviewed. CONTRAST: IV 100mL [id number] COMPARISON: CTA chest, 12/23/2021 FINDINGS: PULMONARY ARTERIES: This examination is not protocoled for the evaluation of the pulmonary arteries. No large or central pulmonary artery embolus is identified. AORTA: The ascending thoracic aorta is mildly ectatic measuring up to 4.4 cm. This is similar to the prior examination given variation in measurement technique. No evidence of aortic dissection. GREAT VESSELS OF AORTIC ARCH: No significant abnormality. Normal in caliber. No evidence of dissection. LUNGS AND PLEURAL SPACES: Granuloma in the right upper lobe. . Likely scarring in the posterior medial left lower lobe. Minimal dependent atelectasis bilaterally in the lower lobes. No mass. No pleural effusion or thickening. No pneumothorax. HEART: Coronary artery calcifications and/or stents. Heart size is normal. No pericardial effusion. MEDIASTINUM: Mediastinal granulomas. Medium-sized hiatal hernia. No mediastinal or hilar adenopathy. Esophagus is unremarkable. THYROID: No significant abnormality. No thyroid lesions. BONES/JOINTS: Degenerative changes in the spine and shoulders. Chronic prominent Schmorl''s node or mild compression deformity superior endplate of T11. No suspicious lytic or blastic abnormality. LIVER: Poorly defined enhancing lesion within the posterior right hepatic lobe measuring up to 1 cm. KIDNEYS AND URETERS: Solid appearing right renal mass measuring 3.8 cm, either outside of the [id number] or not present on the prior examination. CT/CTA Chest W/WO Contrast IMPRESSION: 1. The ascending thoracic aorta is mildly ectatic measuring up to 4.4 cm. This is similar to the prior examination given variation in measurement technique. No evidence of additional aneurysm or dissection. 2. Solid appearing right renal mass measuring 3.8 cm, either outside of the [id number] or not present on the prior examination. ACR White Paper guidelines (Hergaurav, et al. JACR 2018; 15(2):264-273) recommend MRI or CT without and with intravenous contrast. Renal cysts are identified for which no follow-up is indicated. 3. Poorly defined enhancing lesion within the posterior right hepatic lobe measuring up to 1 cm. ACR White Paper guidelines ([place], et al. JACR 2017; 14(11):7183-6584.) suggest the following. For patients with a low risk of malignancy, no further follow-up is necessary. For patients with high risk of malignancy (known malignancy with a propensity to metastasize to the liver, cirrhosis, and/or other hepatic risk factors), recommend follow-up abdominal CT or MR in 6 months. 4. Medium-sized hiatal hernia. Electronically Signed: Alfred De La Rosa DO at 12:30 EDT ,
== END | disposition home or self-care (01) ==
LOC: CVS 13:02
PROVIDERS: PCP Student in an Organized Health Care Education/Training Program; Visit Provider Physician Assistant Medical
DX: R06.09 Other forms of dyspnea (principal); I71.20 Thoracic aortic aneurysm, without rupture, unspecified
CPT/HCPCS: 71275; 93306; Q9967

== ENCOUNTER → 2023-09-21 | Outpatient (CLI) | payer MEDICARE, SELFPAY | END | disposition home or self-care (01) | PROVIDERS: PCP Student in an Organized Health Care Education/Training Program; Referring Provider Student in an Organized Health Care Education/Training Program; Visit Provider Student in an Organized Health Care Education/Training Program | DX: G47.33 Obstructive sleep apnea (adult) (pediatric) (principal) | CPT/HCPCS: 95811 ==